=== PATIENT | male | born 1975 | race Two or more races ===

== ENCOUNTER 2025-06-19 11:50 | Emergency (ER) | payer MEDICAID, OTHER ==
[~2025-06-19] VITALS: Ht 165.1 cm; Wt 63.9 kg
[2025-06-19 11:52] VITALS: BP 148/76; PULSE 66; RESP 16; TEMP 97.9; O2SAT 97
== END 2025-06-19 15:18 | disposition left against medical advice (07) ==
LOC: ER 11:50
DX: J02.9 Acute pharyngitis, unspecified (principal); Z53.21 Procedure and treatment not carried out due to patient leaving prior to being seen by health care provider